=== PATIENT | female | born 1970 | race Caucasian/White ===

== ENCOUNTER 2023-02-14 08:39 | Emergency (ER) | payer MEDICARE, MEDICAID ==
[2023-02-14] MEDS ORDERED: Take Home: Cephalexin 500 MG Cap, 6 Cap Pack PO ONE (09:06)
== END 2023-02-14 09:20 | disposition home or self-care (01) ==
LOC: DL.ED 08:39 → EDBD 08:39 → DL.ED 09:20
DX: L60.0 Ingrowing nail (principal); L08.9 Local infection of the skin and subcutaneous tissue, unspecified; J44.9 Chronic obstructive pulmonary disease, unspecified; Z72.0 Tobacco use
CPT/HCPCS: 99282; 99283; A9270-GY

== ENCOUNTER 2023-12-30 05:24 | Day surgery (SDC) | payer MEDICARE, MEDICAID ==
[2023-12-30] MEDS: Dextrose 5%-0.45% NaCl 1,000 ML IV SCH (05:58)
== END 2023-12-30 08:12 | disposition home or self-care (01) ==
LOC: DL.ENDO 05:24
PROVIDERS: ATTEND Internal Medicine Gastroenterology
DX: D12.5 Benign neoplasm of sigmoid colon (principal); K44.9 Diaphragmatic hernia without obstruction or gangrene; K21.9 Gastro-esophageal reflux disease without esophagitis; K59.00 Constipation, unspecified; K62.5 Hemorrhage of anus and rectum; K57.30 Diverticulosis of large intestine without perforation or abscess without bleeding
CPT/HCPCS: 45385; J7042; 88305

== ENCOUNTER 2024-10-15 09:06 | Emergency (ER) | payer OTHER, MEDICARE ==
[2024-10-15] MEDS: Take Home: Ondansetron 4 MG Tab.DIS, 5 Tab Pack PO ONE (09:49)
== END 2024-10-15 09:52 | disposition home or self-care (01) ==
LOC: DL.ED 09:06
DX: J44.89 Other specified chronic obstructive pulmonary disease (principal); R11.11 Vomiting without nausea; K21.9 Gastro-esophageal reflux disease without esophagitis; Z79.899 Other long term (current) drug therapy
CPT/HCPCS: 99283; Q0162